=== PATIENT | female | born 1995 | race Hispanic/Latino ===

== ENCOUNTER 2018-05-07 17:05 | Emergency (ER) | payer BC ==
[~2018-05-07] VITALS: Ht 157.5 cm; Wt 89.8 kg
[2018-05-07] MEDS ORDERED: PROMETHAZINE HCL (IM) 25 MG/ML VIAL IM ONE (18:00)
[2018-05-07] MEDS ORDERED: ALBUTEROL SULF 0.083% NEB SOLN 3 ML NEB NEB ONE (18:00)
[2018-05-07] MEDS ORDERED: SODIUM CHLORIDE 0.9% 1000ML 1,000 ML ONE (18:00)
[2018-05-07] MEDS ORDERED: BROMFED DM COU118 ML PO (18:40)
[2018-05-07] MEDS ORDERED: ZOFRAN ODT4 MG PO (18:40)
[2018-05-07] MEDS ORDERED: PROAIR HFA INH8.5 GM INH (18:40)
== END 2018-05-07 19:46 | disposition home or self-care (01) ==
LOC: FSED 17:05
DX: R11.2 Nausea with vomiting, unspecified (principal); R10.84 Generalized abdominal pain; B34.9 Viral infection, unspecified
CPT/HCPCS: 99283; J2550; J7030

== ENCOUNTER 2024-05-28 16:39 | Emergency (ER) | payer BC, OTHER ==
[~2024-05-28] VITALS: Ht 160 cm; Wt 97.3 kg
[~2024-05-28 16:39] MED LIST: BROMFED DM COU118 ML PO; PROAIR HFA INH8.5 GM INH; ZOFRAN ODT4 MG PO
[2024-05-28 17:00] VITALS: PULSE 78; RESP 20; TEMP 97.8
[2024-05-28] MEDS ORDERED: AZITHROMYCIN250 MG PO (17:49)
[2024-05-28] MEDS ORDERED: PREDNISONE20 MG PO (17:49)
[2024-05-28] MEDS ORDERED: NASACORT16.9 ML (17:49)
[2024-05-28] MEDS ORDERED: DIPHENHYDRAMINE25 M2 PO (17:49)
[2024-05-28 17:59] VITALS: BP 119/72; PULSE 71; RESP 18; TEMP 98.6; O2SAT 98
== END 2024-05-28 17:55 | disposition home or self-care (01) ==
LOC: FSED 17:02
DX: R05.9 Cough, unspecified (principal); J40 Bronchitis, not specified as acute or chronic; J06.9 Acute upper respiratory infection, unspecified; F17.210 Nicotine dependence, cigarettes, uncomplicated
CPT/HCPCS: 0223U; 71046; 83518; 87400; 99283

== ENCOUNTER 2024-08-09 18:40 | Emergency (ER) | payer OTHER ==
[~2024-08-09] VITALS: Ht 160 cm; Wt 97.1 kg
[~2024-08-09 18:40] MED LIST changes: +AZITHROMYCIN250 MG PO; +DIPHENHYDRAMINE25 M2 PO; +NASACORT16.9 ML; +PREDNISONE20 MG PO
[2024-08-09 19:21] VITALS: PULSE 87; RESP 20; TEMP 98.5
[2024-08-09 19:40] LABS: STREPTOCOCCUS GRP A ANTIGEN NEGATIVE (NEGATIVE)
[2024-08-09 19:42] LABS: CORONAVIRUS COVID-19 AG NEGATIVE (NEGATIVE); INFLUENZA A AG NEGATIVE (NEGATIVE); INFLUENZA B AG NEGATIVE (NEGATIVE)
[2024-08-09 19:53] VITALS: BP 124/86; PULSE 83; RESP 16; TEMP 98.4; O2SAT 98
== END 2024-08-09 19:58 | disposition home or self-care (01) ==
LOC: ER 18:50
DX: J02.8 Acute pharyngitis due to other specified organisms (principal); J45.909 Unspecified asthma, uncomplicated
CPT/HCPCS: 83518; 87070; 99282